=== PATIENT | female | born 1970 | race Two or more races ===

== ENCOUNTER 2021-01-12 11:06 | Emergency (ER) | payer SELFPAY ==
[~2021-01-12] VITALS: Ht 157.5 cm; Wt 58.1 kg
[2021-01-12 11:32] VITALS: BP 132/76
[2021-01-12] MEDS ORDERED: HYDR-2759 PO (11:43)
--- NOTE | 2021-01-12 11:44 | PHYS DOC ---
General Adult EDM: Chief Complaint: ANKLE PROBLEM HPI: HPI: 50-year-old female presents with left lateral ankle pain. She was getting out of a car and the ground was uneven. She fell over and could not stand up on her left ankle. It is swollen significantly so she came in for evaluation. She denies any other injuries or complaints at this time. Review of Systems: Review of Systems: Constitutional: Denies fever or chills Eyes: Denies change in visual acuity HENT: Denies nasal congestion or sore throat Respiratory: Denies cough or shortness of breath Cardiovascular: Denies chest pain or edema GI: Denies abdominal pain, nausea, vomiting, bloody stools or diarrhea : Denies dysuria Musculoskeletal: Left ankle pain Integument: Denies rash Neurologic: Denies headache, focal weakness or sensory changes Endocrine: Denies polyuria or polydipsia Lymphatic: Denies swollen glands Psychiatric: Denies depression or anxiety Allergies: Allergies: Allergies Coded Allergies Type Severity Reaction Last Updated Verified No Known Drug Allergies 01/12/21 No Physical Exam: PE: Constitutional: Well developed, well nourished, no acute distress, non-toxic appearance. [] HENT: Normocephalic, atraumatic, bilateral external ears normal, oropharynx moist, no oral exudates, nose normal. [] Eyes: PERRLA, EOMI, conjunctiva normal, no discharge. [] Neck: Normal range of motion, no tenderness, supple, no stridor. [] Cardiovascular:Heart rate regular rhythm, no murmur [] Lungs & Thorax: Bilateral breath sounds clear to auscultation [] Abdomen: Bowel sounds normal, soft, no tenderness, no masses, no pulsatile masses. [] Skin: Warm, dry, no erythema, no rash. [] Back: No tenderness, no CVA tenderness. [] Extremities: Tenderness, ecchymosis, significant swelling of the left lateral ankle. [] Neurologic: Alert and oriented X 3, normal motor function, normal sensory function, no focal deficits noted. [] Psychologic: Affect normal, judgement normal, mood normal. [] EKG: EKG: [] Radiology/Procedures: Radiology/Procedures: [] Impressions: 3 views left ankle 01/12/2021 11:19 AM Indication: Reason: fall / Spl. Instructions: / History: Comparison: None Findings: There is a comminuted fracture of the distal fibula. Fracture is mildly displaced. There is a possible nondisplaced fracture involving the medial malleolus. Borderline widening of the medial airspace noted. There is diffuse soft tissue edema. No dislocation is seen. No other fractures seen. IMPRESSION: 1. Distal fibular fracture 2. Possible nondisplaced medial malleolus fracture with borderline widening of the medial clear space. If clinically relevant, CT could be performed for confirmation Electronically signed by: Kali Govea MD (01/12/2021 11:41 AM) [id number] DICTATED AND SIGNED BY: KALI GOVEA MD DATE: 01/12/21 1137 CC: BAILEE DECKER DO; PCP,NO ~MTH0 0 Heart Score: C/O Chest Pain: N/A Risk Factors: Risk Factors: DM, Current or recent (<one month) smoker, HTN, HLP, family history of CAD, obesity. Risk Scores: Score 0 - 3: 2.5% MACE over next 6 weeks - Discharge Home Score 4 - 6: 20.3% MACE over next 6 weeks - Admit for Clinical Observation Score 7 - 10: 72.7% MACE over next 6 weeks - Early Invasive Strategies Course & Med Decision Making: Course & Med Decision Making Pertinent Labs and Imaging studies reviewed. (See chart for details) The patient has a broken distal fibula. We will place her in a posterior splint. I have given her Bourbon 5/325 for pain in the ED. I will discharge her with the same prescription. She will follow-up with orthopedics this week. She is stable for discharge at this time. [] Bia Disclaimer: Bia Disclaimer: This electronic medical record was generated, in whole or in part, using a voice recognition dictation system. Departure Departure: Impression: Primary Impression: Closed left fibular fracture Qualified Codes: S82.832A - Other fracture of upper and lower end of left fibula, initial encounter for closed fracture Disposition: HOME / SELF CARE / HOMELESS Condition: STABLE Referrals: PCP,NO (PCP) Patient Instructions: Fibular Fracture, Ankle, Adult, Treated with or without Immobilization Scripts Hydrocodone/Acetaminophen (Hydrocodone-Acetamin 5-325 mg) 1 Each Tablet 1 EACH PO Q4-6HRS PRN for PAIN, #10 TAB Prov: BAILEE DECKER DO 01/12/21 BAILEE DECKER DO January 12, 2021 11:43
[2021-01-12] MEDS: HYDROcodone/APAP 5/325MG 1 TAB TABLET PO ONE (11:50)
== END 2021-01-12 12:10 | disposition home or self-care (01) ==
LOC: ER 11:06
DX: S82.832A Other fracture of upper and lower end of left fibula, initial encounter for closed fracture (principal); W18.39XA Other fall on same level, initial encounter; Y93.89 Activity, other specified; Y92.89 Other specified places as the place of occurrence of the external cause; Y99.8 Other external cause status
CPT/HCPCS: 73610; 99283